=== PATIENT | female | born 1960 | race Caucasian/White ===

== ENCOUNTER → 2022-03-08 | Day surgery (SDC) | payer BC ==
[2022-03-07 10:32] LABS: BASOPHILS # (AUTO) 0.1 (0.0-0.1); BASOPHILS % 0.6 % (0.0-1.0); EOSINOPHILS # (AUTO) 0.1 (0.0-0.4); EOSINOPHILS % 1.4 % (0.0-6.0); HEMATOCRIT 46.7 % (34.2-44.1); HEMOGLOBIN 15.1 g/dL (12.0-16.0); LYMPHOCYTES # (AUTO) 2.9 (1.0-3.2); LYMPHOCYTES % 34.4 % (18.0-39.1); MEAN CORPUSCULAR HEMOGLOBIN 29.8 pg (28-32); MEAN CORPUSCULAR HGB CONC 32.3 g/dL (31-35); MEAN CORPUSCULAR VOLUME 92.1 fL (81-99); MONOCYTES # (AUTO) 0.8 (0.2-0.8); NEUTROPHILS # (AUTO) 4.5 (2.1-6.9); NEUTROPHILS % 54.2 % (38.7-80.0); PLATELET COUNT 332 x10e3/uL (140-360); RED BLOOD COUNT 5.07 x10e6/uL (3.6-5.1); RED CELL DISTRIBUTION WIDTH 11.8 % (11.7-14.4)
[2022-03-07 11:05] LABS: ANION GAP 17.7 mmol/L (8-16); CALCIUM 10.1 mg/dL (8.4-10.2); CREATININE, SERUM 0.73 mg/dL (0.57-1.11); POTASSIUM 4.7 mmol/L (3.5-5.1)
[~2022-03-08] MED LIST: FENOFIBRATE145 MG PO; FISH OIL 1,001000 M1 PO; FLUDROCORTISON0.1 MG PO; HYDROCORTISONE10 MG PO; LEVOCETIRIZINE D5 MG PO; LEVOTHYROXINE75 MCG PO; METOPROLOL TART50 MG PO; NEURONTIN300 MG PO; NOVOLIN N100 UNIT/1 SC; NOVOLOG100 UNIT/1 SC; OMEPRAZOLE40 MG PO; TRESIBA100 UNIT/1 SC; TRULICITY0.75 MG/0. SC; VITAMIN D3125 MCG PO; ZETIA10 MG PO
[2022-03-08 10:55] VITALS: BP 142/69
== END | disposition home or self-care (01) ==
LOC: OR 06:09
PROVIDERS: ATTEND Orthopaedic Surgery
DX: M75.121 Complete rotator cuff tear or rupture of right shoulder, not specified as traumatic (principal); S43.014A Anterior dislocation of right humerus, initial encounter; E11.9 Type 2 diabetes mellitus without complications; E27.1 Primary adrenocortical insufficiency; Z96.652 Presence of left artificial knee joint; Z82.49 Family history of ischemic heart disease and other diseases of the circulatory system; Z83.3 Family history of diabetes mellitus; Z80.9 Family history of malignant neoplasm, unspecified; Z82.61 Family history of arthritis; Z01.810 Encounter for preprocedural cardiovascular examination; Z01.812 Encounter for preprocedural laboratory examination; Z01.818 Encounter for other preprocedural examination
CPT/HCPCS: 29823; 29826; 29827; 36415 ×2; 71046; 80048; 82948; 85025; 93005; C1713 ×2; J0690

== ENCOUNTER 2024-05-23 08:00 | Day surgery (SDC) | payer MEDICARE, OTHER ==
[2024-05-21 09:48] LABS: BASOPHILS # (AUTO) 0.1 (0.0-0.1); BASOPHILS % 0.6 % (0.0-1.0); EOSINOPHILS # (AUTO) 0.1 (0.0-0.4); EOSINOPHILS % 1.2 % (0.0-6.0); HEMATOCRIT 41.1 % (34.2-44.1); HEMOGLOBIN 13.7 g/dL (12.0-16.0); LYMPHOCYTES # (AUTO) 3.8 (1.0-3.2); LYMPHOCYTES % 45.9 % (18.0-39.1); MEAN CORPUSCULAR HEMOGLOBIN 30.2 pg (28-32); MEAN CORPUSCULAR HGB CONC 33.3 g/dL (31-35); MEAN CORPUSCULAR VOLUME 90.7 fL (81-99); MONOCYTES # (AUTO) 0.9 (0.2-0.8); MONOCYTES % 11.1 % (4.4-11.3); NEUTROPHILS # (AUTO) 3.4 (2.1-6.9); PLATELET COUNT 276 x10e3/uL (140-360); RED BLOOD COUNT 4.53 x10e6/uL (3.6-5.1); RED CELL DISTRIBUTION WIDTH 12.1 % (11.7-14.4)
[2024-05-21 10:31] LABS: ALBUMIN 3.9 g/dL (3.5-5.0); ANION GAP 13.1 mmol/L (8-16); BILIRUBIN,TOTAL 0.4 mg/dL (0.2-1.2); CALCIUM 9.7 mg/dL (8.4-10.2); CREATININE, SERUM 0.75 mg/dL (0.57-1.11); INR 0.89; POTASSIUM 4.1 mmol/L (3.5-5.1); PROTHROMBIN TIME 12.6 seconds (11.9-14.5); TOTAL PROTEIN 7.2 g/dL (6.5-8.1)
[2024-05-21 10:32] LABS: ALBUMIN/GLOBULIN RATIO 1.2 (0.8-2.0)
[~2024-05-23] VITALS: Ht 160 cm; Wt 76.7 kg
[2024-05-23] VITALS (11 sets, daily range): BP systolic 101–119; BP diastolic 57–72; PULSE 74–88; RESP 9–19; TEMP 96.5–98.1; O2SAT 97–100
[~2024-05-23 08:00] MED LIST changes: +HEPARIN SOD (PORCINE) 1000 UNIT/ML 30ML ONE; +HEPARIN SOD/SOD CHLORIDE 2,000 ML ONE; +IOPAMIDOL 370 MG/ML 100 ML INFUS..BTL INJ ONE; +LIDOCAINE HCL 1% LOCAL INJ 20 ML VIAL ONE; +MOUNJARO7.5 MG/0.5 SQ; +NITROGLYCERIN/D5W 200 MCG/ML 250 ML ONE; +SODIUM CHLORIDE 0.9% 1000ML 2,000 ML ONE; +VERAPAMIL HCL 2.5 MG/ML 2 ML VIAL ONE
[2024-05-23] MEDS ORDERED: MIDAZOLAM HCL 2 MG/2 ML VIAL ONE (08:21)
[2024-05-23] MEDS ORDERED: FENTANYL CITRATE/PF 100MCG/2 ML INJ ONE (08:22)
[2024-05-23] MEDS ORDERED: ASPIRIN 325 MG TAB ONE (09:23)
[2024-05-23] MEDS ORDERED: CLOPIDOGREL BISULFATE 75 MG TAB ONE (09:23)
[2024-05-23] MEDS ORDERED: HYDRALAZINE HCL 20 MG/ML VIAL ONE (09:31)
== END 2024-05-23 12:00 | disposition home or self-care (01) ==
LOC: CATH LAB 08:00
PROVIDERS: ATTEND Internal Medicine Cardiovascular Disease
DX: I70.203 Unspecified atherosclerosis of native arteries of extremities, bilateral legs (principal); I49.3 Ventricular premature depolarization; I87.2 Venous insufficiency (chronic) (peripheral); I73.89 Other specified peripheral vascular diseases; I10 Essential (primary) hypertension; E78.5 Hyperlipidemia, unspecified; E11.9 Type 2 diabetes mellitus without complications; E07.9 Disorder of thyroid, unspecified; Z01.812 Encounter for preprocedural laboratory examination; Z79.4 Long term (current) use of insulin; Z79.85 Long-term (current) use of injectable non-insulin antidiabetic drugs; Z79.899 Other long term (current) drug therapy; Z82.49 Family history of ischemic heart disease and other diseases of the circulatory system; Z83.3 Family history of diabetes mellitus
CPT/HCPCS: 36415 ×2; 37225; 75625; 76937; 80053; 82948; 85025; 85610; C1724; C1760; C1769 ×3; C1887 ×2; C1894; C2623; J0360; J1644; J2003; J2250; J3010; J7030; Q9967; 75716; 99152; 99153